=== PATIENT | female | born 1990 | race Caucasian/White ===

== ENCOUNTER 2023-08-29 09:00 | Day surgery (SDC) | payer BC ==
[2023-08-28 15:06] VITALS: BP 146/73; PULSE 70; RESP 17
[2023-08-28 15:07] LABS: BASOPHILS # (AUTO) 0.06 K/uL (0.00-0.20); BASOPHILS % (AUTO) 0.6 % (0.0-5.0); EOSINOPHILS # (AUTO) 0.26 K/uL (0.00-0.70); EOSINOPHILS % (AUTO) 2.8 % (0.0-8.0); HEMATOCRIT 39.2 % (36-48); IMMATURE GRANULOCYTE ABSOLUTE 0.04 K/uL (0-1); LYMPHOCYTES # (AUTO) 3.1 K/uL (1.0-4.8); LYMPHOCYTES % (AUTO) 32.6 % (21.0-51.0); MEAN CORPUSCULAR HEMOGLOBIN 29.5 pg (27.0-33.0); MEAN CORPUSCULAR HGB CONC 33.2 g/dL (32.0-36.0); MEAN CORPUSCULAR VOLUME 89.1 fL (79-99); MONOCYTES # (AUTO) 0.7 K/uL (0.1-1.0); MONOCYTES % (AUTO) 7.3 % (3.0-13.0); NEUTROPHILS # (AUTO) 5.3 K/uL (1.8-7.7); NEUTROPHILS % (AUTO) 56.3 % (40.0-77.0); PLATELET COUNT (AUTO) 342 K/uL (130-400); RED CELL DISTRIBUTION WIDTH 12.9 % (11.0-15.5); WHITE BLOOD COUNT (AUTO) 9.4 K/uL (4.8-10.8)
[2023-08-29] VITALS (21 sets, daily range): BP systolic 104–137; BP diastolic 56–93; PULSE 65–84; RESP 13–16
[~2023-08-29] VITALS: Ht 160 cm; Wt 118.9 kg
[~2023-08-29 09:00] MED LIST: CETI10CA5 PO; DROS4TAB PO; FLUT16H NASAL; HYDR25TA PO; METF-444 PO; SEMA0.258 SQ
[2023-08-29] MEDS ORDERED: CEFAZOLIN SODIUM 1 GM VIAL ONE (09:45)
[2023-08-29] MEDS ORDERED: DEXAMETHASONE SOD PHOSPHATE 4 MG/ML 1ML VIAL ONE (09:45)
[2023-08-29] MEDS ORDERED: 0.9%NACL 1000ML 1,000 ML IV ONE (09:46)
[2023-08-29] MEDS ORDERED: METRONIDAZOLE 500MG/100ML BAG 100 ML ONE (09:46)
[2023-08-29] MEDS ORDERED: PHENAZOPYRIDINE HCL 200 MG TABLET ONE (09:46)
[2023-08-29] MEDS ORDERED: SCOPOLAMINE HYDROBROMIDE 1 EACH ADH..PATCH TD ONE (09:46)
[2023-08-29 09:49] LABS: CREATININE 0.9 mg/dL (0.5-1.5); POTASSIUM 3.9 mmol/L (3.5-5.1)
[2023-08-29] MEDS ORDERED: BUPIVACAINE/PF 0.25% 30ML VIAL IJ ONE ×2 (10:18→11:30)
[2023-08-29] MEDS ORDERED: SUCCINYLCHOLINE CHLORIDE 20 MG/ML 10 ML VIAL ONE (10:39)
[2023-08-29] MEDS ORDERED: ROCURONIUM BROMIDE 10MG/1ML 5ML VL ONE (10:39)
[2023-08-29] MEDS ORDERED: PROPOFOL 10 MG/ML 20ML VIAL IV ONE (10:39)
[2023-08-29] MEDS ORDERED: MIDAZOLAM HCL 1 MG/ML 2ML VIAL ONE (10:39)
[2023-08-29] MEDS ORDERED: FENTANYL CITRATE PF 50 MCG/1 ML 2ML VIAL ONE (10:39)
[2023-08-29] MEDS ORDERED: LIDOCAINE PF 100MG/5ML (2%) SYRINGE 5ML ONE (10:39)
[2023-08-29] MEDS ORDERED: CEFAZOLIN SODIUM 3 GM VIAL IVPB ONE (11:00)
[2023-08-29] MEDS ORDERED: GLYCOPYRROLATE 0.2 MG/ML 5 ML VIAL ONE (11:44)
[2023-08-29] MEDS ORDERED: NEOSTIGMINE METHYLSULFATE 1MG/ML IV ONE (11:44)
[2023-08-29] MEDS ORDERED: KETOROLAC 30MG VIAL (30MG/ML) ONE ×2 (11:50→12:04)
[2023-08-29] MEDS ORDERED: MEPERIDINE-PF 25 MG/ML SYG ONE (12:17)
[2023-08-29] MEDS ORDERED: ONDANSETRON 4MG INJ ONE (13:05)
[2023-08-29] MEDS ORDERED: ACETAMINOPHEN 500 MG TABLET ONE (13:05)
[2023-08-29] MEDS ORDERED: MORPHINE 10MG VIAL ONE (13:05)
== END 2023-08-29 15:15 | disposition home or self-care (01) ==
LOC: DAH 09:00
PROVIDERS: ATTEND Obstetrics & Gynecology
DX: Z30.430 Encounter for insertion of intrauterine contraceptive device (principal); N93.9 Abnormal uterine and vaginal bleeding, unspecified; N88.8 Other specified noninflammatory disorders of cervix uteri; E28.2 Polycystic ovarian syndrome; R10.2 Pelvic and perineal pain; D51.9 Vitamin B12 deficiency anemia, unspecified; E11.9 Type 2 diabetes mellitus without complications; E78.5 Hyperlipidemia, unspecified; Z79.899 Other long term (current) drug therapy; Z71.2 Person consulting for explanation of examination or test findings; Z91.013 Allergy to seafood; Z79.84 Long term (current) use of oral hypoglycemic drugs; Z91.018 Allergy to other foods; Z87.891 Personal history of nicotine dependence; Z98.890 Other specified postprocedural states
CPT/HCPCS: 84703; 85025; 86850; 86900; 86901; 36415 ×2; 58662; 58558; 80048; 82948 ×2; 88305; 58300; A6260; J1100; A4663; J7030 ×2; J7120; A4215 ×3; A4344; J0690 ×2; J3010; J0330; J0665 ×2; J3490 ×3; J2001; J2250; J2704; J2405; J1885 ×2; J2710; J2175; J2270; A4930 ×2; A4649 ×3; A4223; A4222; A4221; A4216; A4600 ×2; A4510; G0168